=== PATIENT | female | born 1960 | race Caucasian/White ===

== ENCOUNTER 2018-04-03 12:54 | Emergency (ER) | payer OTHER ==
[2018-04-03 13:00] VITALS: BMI 28.1
--- NOTE | 2018-04-03 13:27 | PDOC ---
History of Present Illness - General Chief Complaint: Pain Stated Complaint: PAIN - History of Present Illness Initial Comments: The patient is a 57F w/ a history of HTN and hypothyroidism who presents for evaluation of 2d of LLQ abdominal pain. Pt describes that pain as sharp, non- radiating, intermittent, worse w/ walking, better with sitting. Has tried Tylenol w/ minimal relief. Denies having hadt this pain before. Denies fevers/chills, VILLAVICENCIO, chest pain, SOB, N/V/C/D, dysuria, hematuria, diarrhea , or blood in stool 04/03/18 13:24 Timing/Duration: unsure Past History - Past Medical History Allergies/Adverse Reactions: Allergies Allergy/AdvReac Type Severity Reaction Status Date / Time Penicillins Allergy Intermediate Verified 04/03/18 12:56 Home Medications: Ambulatory Orders Levothyroxine [Synthroid] 88 mcg PO DAILY 03/09/12 Losartan Potassium 25 mg PO DAILY 04/03/18 Asthma: Yes COPD: No CHF: No HTN: Yes Thyroid Disease: Yes (HYPO) - Suicide/Smoking/Psychosocial Hx Smoking Status: No Smoking History: Never smoked Have you smoked in the past 12 months: No Number of Cigarettes Smoked Daily: 0 Information on smoking cessation initiated: No Hx Alcohol Use: No Drug/Substance Use Hx: No Substance Use Type: None Review of Systems - Review of Systems Able to Perform ROS?: Yes Comments:: GENERAL/CONSTITUTIONAL: No fever or chills. No weakness HEAD, EYES, EARS, NOSE AND THROAT: No change in vision. No ear pain or discharge. No sore throat CARDIOVASCULAR: No chest pain or shortness of breath RESPIRATORY: Denies cough, hemoptysis GASTROINTESTINAL: No nausea, vomiting, diarrhea or constipation GENITOURINARY: No dysuria, frequency, or change in urination MUSCULOSKELETAL: No joint or muscle swelling or pain. No neck or back pain SKIN: No rash NEUROLOGIC: No headache, vertigo, loss of consciousness, or change in strength/ sensation ENDOCRINE: No increased thirst. No abnormal weight change HEMATOLOGIC/LYMPHATIC: No anemia, easy bleeding, or history of blood clots ALLERGIC/IMMUNOLOGIC: No hives or skin allergy 04/03/18 14:17 Is the patient limited [place] proficient: No *Physical Exam - Vital Signs Last Vital Signs Temp Pulse Resp BP Pulse Ox 98.6 F 92 H 16 180/93 H 100 04/03/18 12:58 04/03/18 12:58 04/03/18 12:58 04/03/18 12:58 04/03/18 12:58 - Physical Exam Comments: GENERAL: Awake, alert, and fully oriented, in no acute distress HEAD: No signs of trauma, normocephalic, atraumatic EYES: PERRLA, EOMI, sclera anicteric, conjunctiva clear ENT: Hearing grossly normal, nares patent, oropharynx clear without exudates. Moist mucosa LUNGS: No distress, speaks full sentences, clear to auscultation bilaterally HEART: Regular rate and rhythm, normal S1 and S2, no murmurs appreciated, peripheral pulses normal and equal bilaterally ABDOMEN: Soft, LLQ TTP w/o rebound or guarding, normoactive bowel sounds. EXTREMITIES : Normal inspection, Normal range of motion, no edema. No clubbing or cyanosis NEUROLOGICAL: Cranial nerves II through XII grossly intact. Normal speech, normal gait, no focal sensorimotor deficits SKIN: Warm, Dry, normal turgor, no rashes or lesions noted 04/03/18 14:17 Moderate Sedation - Procedure Monitoring Vital Signs: Procedure Monitoring Vital Signs Temperature 98.6 F 04/03/18 12:58 Pulse Rate 92 H 04/03/18 12:58 Respiratory Rate 16 04/03/18 12:58 Blood Pressure 180/93 H 04/03/18 12:58 O2 Sat by Pulse Oximetry (%) 100 04/03/18 12:58 ED Treatment Course - LABORATORY CBC & Chemistry Diagram: 04/03/18 14:00 04/03/18 14:00 Medical Decision Making - Medical Decision Making The patient is a 57F w/ a history of HTN and hypothyroidism who presents for 2d of sharp, LLQ abdominal pain that is worse w/ movement/walking and better with rest ED Course CMP, CBC, UA UCx Tylenol 975mg PO for pain 04/03/18 14:18 Lytes wnl No MARY BETH LFTs wnl Considered diverticulitis and nephrolithiasis. Suspicion for both is low given patient's H&P. Pain does not occur at all at rest. Is minimally reproducible. Not worse after eating. -Considering to defer CT scan at this time. Will re-asses when all labs return and s/p reassessment 04/03/18 14:55 UA w/ 1+LE -micro pending No leukocytosis No anemia 04/03/18 15:17 Patient reports pain improved. Patient ambulating w/o pain and patient denies pain while sitting UA w/ neg micro -Discussed results with patient. Currently low suspicion of nephrolithiasis or diverticulitis. Suspect pain to MSK in nature at this time. -Plan for D/C w/ PCP f/u -Discussed with patient plan for D/C w/ instructions to return for CT scan if pain persists or worsens vs CT today. Patient in agreement w/ plan to D/C with strict return precautions. Discharge instructions given and return precautions given Patient in agreement and verbalized understanding Dispo: Home 04/03/18 15:50 *DC/Admit/Observation/Transfer Diagnosis at time of Disposition: LLQ abdominal mass - Discharge Dispostion Disposition: HOME Decision to Admit order: No - Referrals Referrals: Uzair Hart MD [Primary Care Provider] - - Patient Instructions Printed Discharge Instructions: DI for Abdominal Pain-Adult Additional Instructions: You were seen in the Emergency Department today for abdominal pain. Please review the handout provided at discharge. You may take Ibuprofen up to 800mg three times a day and Tylenol up to 1000mg 4 times a day for pain. Return to the Emergency Department if your pain persists or gets worse. Also return if you develop fevers/chills, nausea/vomiting, diarrhea, or any new/concerning symptoms. - Post Discharge Activity Forms/Work/School Notes: Back to Work
--- NOTE | 2018-04-03 14:14 | PDOC ---
Attending Attestation - HPI HPI: The patient is a 57 year old female, with a significant past medical history of hypothyroidism and HTN, who presents to the emergency department with, 2 days of LLQ pain. She describes her pain as sharp, nonradiating. She notes her pain to worsen with walking and alleviated with sitting. She endorses mild relief with Tylenol. She notes chills and nausea yesterday. Patient endorses mild dysuria today. She denies recent fevers, headache or dizziness. She denies recent vomit, diarrhea or constipation. She denies recent frequency, urgency or hematuria. She denies recent chest pain or shortness of breath. Allergies: Penicillins. <Josh Cormier - Last Filed: 04/03/18 14:48> - Resident Resident Name: Umair Martinez - ED Attending Attestation I have performed the following: I have examined & evaluated the patient, The case was reviewed & discussed with the resident, I agree w/resident's findings & plan, Exceptions are as noted - HPI HPI: 04/03/18 14:13 57y F hx of htn, hypothyroidis, present swith 2 days of sharp nonradiating LLQ that is worse with walking, improves with rest/sitting and tylenol. Pain only present with walking - no pain with rest. no recent heavy lifting, trauma. No associated n/v, diarrhea, fever/chils, melena, bpr. abd soft, L inguinal tenderness, no rebouund/guarding pain inconsistently reproducibed with L hip flexion ddx - msk strain vs diverticulitis vs kidney stones will ck labs, ua tylenol for pain will reassess consider imaging if +pain on reexam - Physicial Exam PE: 04/04/18 17:43 se eabove - Medical Decision Making 04/03/18 14:58 A portion of this note was documented by scribe services under my direction. I have reviewed the details of the note, within reason, and agree with the documentation with the following case summary and management plan written by me <Dm Ospina - Last Filed: 04/04/18 17:43> Attestations - Attestations 04/03/18 14:18 Documentation prepared by Josh Cormier, acting as medical equipment technician for Dm Ospina MD. <Josh Cormier - Last Filed: 04/03/18 14:48>
[2018-04-03] MEDS ORDERED: ACETAMINOPHEN 325 MG TABLET (FP) PO ONE (14:16)
[2018-04-03] MEDS ORDERED: ACETAMINOPHEN 325 MG TABLET (FP) ONE (14:22)
[2018-04-03 14:35] LABS: ALBUMIN 0.3 g/dl (3.4-5.0); ALK PHOS 127 U/L (45-117); ANION GAP 21 MMOL/L (8-16); BILIRUBIN,TOTAL 0.4 mg/dL (0.2-1); BLOOD UREA NITROGEN 13 mg/dL (7-18); CHLORIDE 103 mmol/L (98-107); CO2 14 mmol/L (21-32); CREATININE 0.6 mg/dL (0.55-1.3); SGOT/AST 12 U/L (15-37); SGPT/ALT 27 U/L (13-61); SODIUM 137 mmol/L (136-145)
[2018-04-03 14:44] LABS: CALCIUM 9.8 mg/dL (8.5-10.1); GLUCOSE,RANDOM 88 mg/dL (74-106)
[2018-04-03 15:10] LABS: URINE APPEARANCE CLEAR; URINE BILIRUBIN NEGATIVE (<2.0 mg/dL); URINE COLOR LTYELLOW; URINE GLUCOSE (UA) NEGATIVE (NEGATIVE); URINE KETONE NEGATIVE (NEGATIVE); URINE LEUK ESTERASE 1+ (NEGATIVE); URINE NITRITE NEGATIVE (NEGATIVE); URINE PROTEIN NEGATIVE (NEGATIVE); URINE UROBILINOGEN NEGATIVE mg/dL (0.2-1.0)
[2018-04-03 15:16] LABS: HEMATOCRIT 40.3 % (32.4-45.2); HEMOGLOBIN 12.8 GM/dL (10.7-15.3); MCH 25.9 pg (25.7-33.7); MCHC 31.7 g/dl (32.0-36.0); MEAN CELL VOLUME 81.6 fl (80-96); MEAN PLT VOLUME 9.5 fl (7.5-11.1); PLATELET COUNT 283 K/MM3 (134-434); RBC 4.94 M/mm3 (3.60-5.2); RDW 14.4 % (11.6-15.6); WHITE BLOOD COUNT 7.6 K/mm3 (4.0-10.0)
[2018-04-03 15:24] LABS: EPI CELLS RARE /HPF (FEW)
[2018-04-03 15:43] VITALS: BP 129/70; PULSE 77; TEMP 97.9
== END 2018-04-03 16:12 | disposition home or self-care (01) ==
LOC: JER 12:54
DX: R19.00 Intra-abdominal and pelvic swelling, mass and lump, unspecified site (principal); I10 Essential (primary) hypertension
CPT/HCPCS: 36415; 80053; 81003; 81015; 85027; 87086; 87186; 99283-25

== ENCOUNTER 2023-05-30 13:00 | Observation (INO) | payer SELFPAY ==
[2023-05-30] MEDS ORDERED: methylPREDNISolone NA SUCC 125 MG/2 ML VIAL IVPUSH ONE (13:24)
[2023-05-30] MEDS ORDERED: ACETAMINOPHEN 1000 MG/100 ML BAG IVPB ONE (13:24)
[2023-05-30] MEDS ORDERED: methylPREDNISolone NA SUCC 125 MG/2 ML VIAL ONE (14:29)
[2023-05-30] MEDS ORDERED: ACETAMINOPHEN INJECTION 100 ML IVPB ONE (14:29)
[2023-05-30] MEDS ORDERED: ALBUTEROL SO4 2.5/IPRATROPIUM 0.5 INH SOL 3 ML VIAL.NEB. NEB ONE ×2 (14:29→14:53)
[2023-05-30] MEDS: ALBUTEROL SO4 2.5/IPRATROPIUM 0.5 INH SOL 3 ML VIAL.NEB. NEB SCH ×3 (14:35→15:21)
[2023-05-30 14:39] LABS: VENOUS BASE EXCESS -0.4 mmol/L (-2-2); VENOUS O2 SATURATION 71.8 % (70-80); VENOUS PCO2 30.9 mmHg (38-52); VENOUS PH 7.475 (7.310-7.410)
[2023-05-30 14:46] LABS: BASO % 0.7 % (0-2.0); EOS % 4.3 % (0-4.5); HEMATOCRIT 38.8 % (32.4-45.2); LYMPH % 39.3 % (8-40); MCH 26.9 pg (25.7-33.7); MCHC 33.4 g/dl (32.0-36.0); MEAN CELL VOLUME 80.4 fl (80-96); MONO % 8.2 % (3.8-10.2); NEUT % 47.5 % (42.8-82.8); PLATELET COUNT 283 10^3/uL (134-434); RBC 4.82 M/mm3 (3.60-5.2); RDW 14.6 % (11.6-15.6); WHITE BLOOD COUNT 8.4 K/mm3 (4.0-10.0)
[2023-05-30 14:51] LABS: POTASSIUM 3.8 mmol/L (3.5-5.1)
[2023-05-30 14:53] LABS: CALCIUM 9.7 mg/dL (8.5-10.1)
[2023-05-30 14:54] LABS: ALBUMIN 4.3 g/dl (3.4-5.0); BLOOD UREA NITROGEN 14.2 mg/dL (7-18); MAGNESIUM 2.3 mg/dL (1.8-2.4)
[2023-05-30 14:57] LABS: CREATININE 0.7 mg/dL (0.55-1.3)
[2023-05-30 14:58] LABS: TOT PROT 7.7 g/dl (6.4-8.2)
[2023-05-30 14:59] LABS: BILIRUBIN,TOTAL 0.4 mg/dL (0.2-1)
[2023-05-30 15:02] LABS: N-TERMINAL BNP 44.8 pg/ml (5-125)
[2023-05-30 15:37] LABS: ACTIVATED PTT 31.3 SECONDS (25.2-36.5); INR 0.97 (0.83-1.09); PROTHROMBIN TIME (PATIENT) 11.2 SEC (9.7-13.0)
[2023-05-30] MEDS ORDERED: DOCUSATE SODIUM 100 MG CAPSULE (FP) PO PRN (21:51)
[2023-05-30] MEDS ORDERED: ACETAMINOPHEN 1000 MG/100 ML BAG IVPB PRN (21:55)
[2023-05-30] MEDS ORDERED: ALBUTEROL SO4 2.5/IPRATROPIUM 0.5 INH SOL 3 ML VIAL.NEB. NEB PRN (21:58)
[2023-05-31 02:02] VITALS: BMI 27.6
[2023-05-31] MEDS: methylPREDNISolone NA SUCC 40 MG/1 ML VIAL IVPUSH SCH ×2 (02:03→09:34)
[2023-05-31] MEDS ORDERED: LEVOTHYROXINE NA 75 MCG TABLET (FP) PO SCH (07:30)
[2023-05-31 08:03] LABS: BASO % 0.3 % (0-2.0); HEMATOCRIT 37.5 % (32.4-45.2); HEMOGLOBIN 12.2 GM/dL (10.7-15.3); LYMPH % 10.4 % (8-40); MCH 26.5 pg (25.7-33.7); MCHC 32.5 g/dl (32.0-36.0); MEAN CELL VOLUME 81.6 fl (80-96); MONO % 1.5 % (3.8-10.2); NEUT % 87.8 % (42.8-82.8); PLATELET COUNT 269 10^3/uL (134-434); RDW 14.5 % (11.6-15.6); WHITE BLOOD COUNT 8.3 K/mm3 (4.0-10.0)
[2023-05-31 08:11] LABS: POTASSIUM 4.3 mmol/L (3.5-5.1)
[2023-05-31 08:13] LABS: BLOOD UREA NITROGEN 13.4 mg/dL (7-18); CALCIUM 9.2 mg/dL (8.5-10.1)
[2023-05-31 08:17] LABS: CREATININE 0.6 mg/dL (0.55-1.3)
[2023-05-31] MEDS ORDERED: MAG HYDROX/AL HYDROX/SIMETH 30 ML UNIT-DOSE CUP PO PRN (08:35)
[2023-05-31 09:34] VITALS: BP 140/84; PULSE 109; RESP 18; TEMP 98.8
[2023-05-31] MEDS ORDERED: FLU VACCINE (FLULAVAL) PF 60 MCG/0.5 ML SYRINGE 2023-2024 IM ONE (10:00)
[2023-05-31] MEDS ORDERED: amLODIPine BESYLATE 5 MG TABLET (FP) PO SCH (10:00)
[2023-05-31] MEDS ORDERED: PANTOPRAZOLE 40 MG TABLET PO SCH (10:00)
[2023-05-31] MEDS ORDERED: ACETAMINOPHEN 325 MG TABLET (FP) PO PRN (21:51)
== END 2023-05-31 12:53 | disposition home or self-care (01) ==
LOC: JER 13:00 → JERBED 15:48 → J4W 20:29
PROVIDERS: ADMIT Family Medicine; ATTEND Family Medicine
PROC: 3E033NZ Introduction of Analgesics, Hypnotics, Sedatives into Peripheral Vein, Percutaneous Approach (ICD-10-PCS; principal; 2023-05-30)
PROC: 3E0F7GC Introduction of Other Therapeutic Substance into Respiratory Tract, Via Natural or Artificial Opening (ICD-10-PCS; 2023-05-30)
PROC: 3E023GC Introduction of Other Therapeutic Substance into Muscle, Percutaneous Approach (ICD-10-PCS; 2023-05-30)
DX: R07.9 Chest pain, unspecified (principal); R61 Generalized hyperhidrosis; R06.02 Shortness of breath; J45.909 Unspecified asthma, uncomplicated; E03.9 Hypothyroidism, unspecified; I10 Essential (primary) hypertension; K21.9 Gastro-esophageal reflux disease without esophagitis; Z87.09 Personal history of other diseases of the respiratory system; Z88.0 Allergy status to penicillin; Z23 Encounter for immunization
CPT/HCPCS: 0241U-QW; 36415; 71275-TC; 74174-TC; 80048; 80053; 82803; 83735; 83880; 84439; 84443; 84484; 85025; 85379; 85610; 85730; 90686; 93005; 93010; 99285-25; G0378; J0131; Q9967